=== PATIENT | male | born 1980 | race Caucasian/White ===

== ENCOUNTER 2018-03-31 13:01 | Emergency (ER) | payer MEDICAID ==
[~2018-03-31 13:01] MED LIST: ALBU6.7H INH; CYCL-1 PO; FLUO20CA39 PO; GUAI120L55 PO; IBUP-1984 PO; LAMO25TA62 PO; LORA1TAB PO; TRAZ-218 PO
--- NOTE | 2018-03-31 14:15 | NUR ---
Called pt for triage 3 times with no answer. Chart given to CN for further action.
== END 2018-03-31 14:17 | disposition left against medical advice (07) ==
LOC: ER 13:01
DX: M79.605 Pain in left leg (principal); M79.89 Other specified soft tissue disorders; Z53.21 Procedure and treatment not carried out due to patient leaving prior to being seen by health care provider

== ENCOUNTER 2019-05-26 16:23 | Emergency (ER) | payer MEDICAID ==
[~2019-05-26] VITALS: Ht 190.5 cm; Wt 75.0 kg
[~2019-05-26 16:23] MED LIST changes: -ALBU6.7H INH; +ALBU6.7H9 INH; -TRAZ-218 PO; +TRAZ-251 PO
[2019-05-26 16:46] LABS: CLARITY,URINE SLIGHTLY CLOUDY (Clear); COLOR,URINE YELLOW (Yellow); GLUCOSE, URINE NEGATIVE (Neg); KETONES,URINE NEGATIVE (Neg); LEUKOCYTE ESTERASE ,URINE SMALL (Neg); NITRITES, URINE NEGATIVE (Neg); OCCULT BLOOD,URINE SMALL (Neg); PROTEIN,URINE TRACE mg/dl (Neg)
[2019-05-26 16:48] LABS: UA COLLECTION TYPE VOIDED
[2019-05-26] MEDS ORDERED: mupirocin 2% ointment 22GM TP STA (16:51)
[2019-05-26 16:52] LABS: BACTERIA,URINE FEW /HPF (Neg); MUCUS STRANDS MANY /LPF (Neg); SPERM FEW /HPF (NEGATIVE); SQUAMOUS EPITHELIAL CELL,UR FEW /LPF (FEW); WBC CLUMPS,URINE MODERATE /HPF (NEGATIVE); WBC,URINE 50-100 /HPF (0-4)
[2019-05-26] MEDS ORDERED: CefTRIAXone 250MG IM Kit w/LIDOcaine IM ONE (16:55)
[2019-05-26] MEDS ORDERED: azithromycin 250mg tablet PO ONE (16:55)
[2019-05-26] MEDS ORDERED: CEPH500C5 PO (17:04)
[2019-05-26 17:11] VITALS: BP 123/67
== END 2019-05-26 17:15 | disposition home or self-care (01) ==
LOC: ER 16:24
DX: N48.22 Cellulitis of corpus cavernosum and penis (principal); G89.29 Other chronic pain; Z59.0 Homelessness; Z98.890 Other specified postprocedural states; Z79.899 Other long term (current) drug therapy
CPT/HCPCS: 36415; 81001; 87088; 87491; 87591; 96372; 99283; J0696

== ENCOUNTER 2019-05-29 08:03 | Emergency (ER) | payer MEDICAID ==
[~2019-05-29] VITALS: Ht 190.5 cm; Wt 76.5 kg
[~2019-05-29 08:03] MED LIST changes: +CEPH500C5 PO
[2019-05-29 08:04] VITALS: BP 114/68
[2019-05-29] MEDS ORDERED: DOXYCYCLINE 100MG CAPSULE PO STA (08:14)
[2019-05-29] MEDS ORDERED: CefTRIAXone 1000mg IM Kit (w/lidocaine diluent) IM ONE (08:15)
[2019-05-29] MEDS ORDERED: DOXY100C43 PO (08:17)
== END 2019-05-29 08:42 | disposition home or self-care (01) ==
LOC: ER 08:03
DX: A74.9 Chlamydial infection, unspecified (principal); N45.1 Epididymitis; F32.9 Major depressive disorder, single episode, unspecified; G89.29 Other chronic pain; Z79.899 Other long term (current) drug therapy; Z59.0 Homelessness
CPT/HCPCS: 96372; 99283; J0696

== ENCOUNTER 2019-09-05 21:06 | Emergency (ER) | payer MEDICAID ==
[~2019-09-05] VITALS: Ht 190.5 cm; Wt 68.2 kg
[~2019-09-05 21:06] MED LIST changes: -CEPH500C5 PO
[2019-09-05 21:09] VITALS: BP 119/74
--- NOTE | 2019-09-06 13:40 | NUR ---
PT CALLED AT THE REQUEST OF RENARD TO HAVE HIM RETURN FOR A WALKING BOOT AND CRUTCHES D/T ANKLE FX. MESSAGE LEFT ON PT PHONE
== END 2019-09-05 23:24 | disposition home or self-care (01) ==
LOC: ER 21:07
DX: S93.409A Sprain of unspecified ligament of unspecified ankle, initial encounter (principal); M25.571 Pain in right ankle and joints of right foot; M25.471 Effusion, right ankle; G89.29 Other chronic pain; F32.9 Major depressive disorder, single episode, unspecified; Z98.890 Other specified postprocedural states; Z56.0 Unemployment, unspecified; Z79.899 Other long term (current) drug therapy; W50.2XXA Accidental twist by another person, initial encounter; Y93.I9 Activity, other involving external motion; Y92.89 Other specified places as the place of occurrence of the external cause; Y99.8 Other external cause status
CPT/HCPCS: 73610; 99284

== ENCOUNTER 2019-09-06 15:46 | Emergency (ER) | payer MEDICAID ==
[~2019-09-06] VITALS: Ht 190.5 cm; Wt 72.0 kg
[2019-09-06 15:56] VITALS: BP 109/67
== END 2019-09-06 17:08 | disposition home or self-care (01) ==
LOC: ER 15:46
DX: S82.64XA Nondisplaced fracture of lateral malleolus of right fibula, initial encounter for closed fracture (principal); G89.29 Other chronic pain; F32.9 Major depressive disorder, single episode, unspecified; Z98.890 Other specified postprocedural states; Z59.0 Homelessness; Z79.899 Other long term (current) drug therapy; X58.XXXA Exposure to other specified factors, initial encounter; Y93.89 Activity, other specified; Y92.89 Other specified places as the place of occurrence of the external cause; Y99.8 Other external cause status
CPT/HCPCS: 99283

== ENCOUNTER 2019-09-23 14:29 | Emergency (ER) | payer MEDICAID ==
[~2019-09-23] VITALS: Ht 190.5 cm; Wt 71.1 kg
[2019-09-23 15:01] LABS: BASOPHILS % (AUTO) 0.6 % (0-1); EOSINOPHILS # (AUTO) 0.2 X10'3 (0-0.9); EOSINOPHILS % (AUTO) 3.3 % (0-6); HEMATOCRIT 39.8 % (42.0-52.0); HEMOGLOBIN 13.4 g/dl (14.0-17.9); LYMPHOCYTES % (AUTO) 27.7 % (21-51); MEAN CORPUSCULAR HEMOGLOBIN 30.1 PG (27.0-31.0); MEAN CORPUSCULAR HGB CONC 33.8 g/dL (33.0-36.5); MEAN PLATELET VOLUME 7.4 FL (7.4-10.4); MONOCYTES # (AUTO) 0.6 X10'3 (0-0.9); MONOCYTES % (AUTO) 8.7 % (2-12); NEUTROPHILS # (AUTO) 4.2 X10'3 (1.8-7.7); NEUTROPHILS % (AUTO) 59.7 % (42-75); PLATELET COUNT 252 X10'3 (140-440); RED BLOOD COUNT 4.47 X10'6 (4.70-6.10); WHITE BLOOD COUNT 7.1 X10'3 (4.5-11.0)
[2019-09-23 15:14] LABS: ALANINE AMINOTRANSFERASE 22 U/L (12-78); ALBUMIN 3.5 G/DL (3.4-5.0); ALBUMIN/GLOBULIN RATIO 0.9 (1.1-1.5); ALKALINE PHOSPHATASE 98 IU/L (46-116); ANION GAP 9 (8-16); ASPARTATE AMINO TRANSFERASE 32 U/L (10-37); BILIRUBIN,TOTAL 0.4 MG/DL (0.1-1.0); BLOOD UREA NITROGEN 16 MG/DL (7-18); BUN/CREATININE RATIO 13.2 (5.4-32.0); CALCIUM 9.1 MG/DL (8.5-10.1); CHLORIDE 101 MMOL/L (99-107); CREATININE 1.21 MG/DL (0.60-1.10); GLUCOSE 121 MG/DL (70-104); POTASSIUM 3.4 MMOL/L (3.5-5.1); SODIUM 136 MMOL/L (135-145); TOTAL PROTEIN 7.5 G/DL (6.4-8.2); eGFR 66 ML/MIN
[2019-09-23 15:23] LABS: ETHANOL < 0.010 GM/DL (0.0-0.010)
[2019-09-23] MEDS ORDERED: acetaminophen 325mg tablet PO ONE (16:00)
[2019-09-23] MEDS ORDERED: TETanus/Pertussis (Acell)/Diphther VAC/PF (Tdap-Adult) 0.5ml syringe IMVAC ONE (16:10)
--- NOTE | 2019-09-23 16:45 | NUR ---
Pt moved to ed 26 from ED. Pt walks with a steady gate,
--- NOTE | 2019-09-23 17:08 | NUR ---
Pt's wound evaluated by Dr. Dejesus, pt decided to not get sutures. Pt 's wound was cleaned with sterile water and hydrogen peroxide, using a zerowet. wound dressed with neosporin and covered with a nonadhesive bandage, covered up with coban.
--- NOTE | 2019-09-23 17:26 | NUR ---
pt is sleeping in bed now. no s/s of distress noted.
--- NOTE | 2019-09-23 19:12 | NUR ---
Patient ate 100 percent of his dinner. We are awaiting a urine sample. Patient is cooperative with this specifications writer.
--- NOTE | 2019-09-23 20:16 | NUR ---
Patient was up to bathroom to void. Patient walks with a limp, patient states it is an old ankle injury. Urine sample sent for UA, patient returns back to bed to sleep.
[2019-09-23 20:17] LABS: CLARITY,URINE CLEAR (Clear); COLOR,URINE YELLOW (Yellow); GLUCOSE, URINE NEGATIVE (Neg); KETONES,URINE NEGATIVE (Neg); LEUKOCYTE ESTERASE ,URINE NEGATIVE (Neg); NITRITES, URINE NEGATIVE (Neg); OCCULT BLOOD,URINE MODERATE (Neg); PROTEIN,URINE NEGATIVE (Neg); UA COLLECTION TYPE CLN CATCH MIDSTREAM; UROBILINOGEN,URINE 0.2 E.U/dL (0.2-1.0)
[2019-09-23 20:22] LABS: BACTERIA,URINE NONE SEEN /HPF (Neg); RBC,URINE 0-2 /HPF (0-2); SQUAMOUS EPITHELIAL CELL,UR NONE SEEN /LPF (FEW); WBC,URINE NONE SEEN /HPF (0-4)
[2019-09-23 20:23] LABS: URINE AMPHETAMINE SCREEN POSITIVE (Neg); URINE BARBITUATE SCREEN NEGATIVE (Neg); URINE BENZODIAZEPINES SCREEN NEGATIVE (Neg); URINE CANNABINOID SCREEN POSITIVE (Neg); URINE COCAINE SCREEN NEGATIVE (Neg); URINE METHADONE SCREEN NEGATIVE (Neg); URINE OPIATE SCREEN NEGATIVE (Neg); URINE PHENCYCLIDINE SCREEN NEGATIVE (Neg)
--- NOTE | 2019-09-23 20:36 | NUR ---
Pt sleeping on his left side resp even and unlabored . Pt in the direct line of sight of nursing staff .
--- NOTE | 2019-09-23 21:29 | NUR ---
Patient sleeping in supine position. No distress. Good color.
--- NOTE | 2019-09-23 22:30 | NUR ---
Patient is sleeping quietly on his left side in bed.
--- NOTE | 2019-09-23 23:53 | NUR ---
Patient is sleeping quietly, low fowlers position. In view from nursing station.
--- NOTE | 2019-09-24 01:05 | NUR ---
Breaking primary RN, pt. resting quietly on back, respirations WNL even and unlabored, no signs of distress.
--- NOTE | 2019-09-24 02:18 | NUR ---
Patient is sleeping with his knees flexed. Patient in no distress. In view from nursing station.
--- NOTE | 2019-09-24 03:11 | NUR ---
Patient sleeping quietly, supine position. Good color, no distress.
--- NOTE | 2019-09-24 04:06 | NUR ---
Patient sleeping quietly. Patient self repositions in bed. Good color, no distress.
--- NOTE | 2019-09-24 05:15 | NUR ---
Patient sleeping, supine position, no distress.
--- NOTE | 2019-09-24 06:30 | NUR ---
pt is sleeping
--- NOTE | 2019-09-24 07:30 | NUR ---
pt is resting
--- NOTE | 2019-09-24 08:30 | NUR ---
no concerns at this time
--- NOTE | 2019-09-24 09:30 | NUR ---
pt is sleeping no concerns at this time
--- NOTE | 2019-09-24 10:30 | NUR ---
pt is sleeping no concerns at this time
--- NOTE | 2019-09-24 11:30 | NUR ---
pt is sleeping no concerns at this time
--- NOTE | 2019-09-24 12:21 | NUR ---
pt is sleeping no concerns at this time
--- NOTE | 2019-09-24 13:00 | NUR ---
PT IS SLEEPING NO CONCERNS AT THIS TIME
--- NOTE | 2019-09-24 14:00 | NUR ---
PT IS SLEEPING NO CONCERNS AT THIS TIME
--- NOTE | 2019-09-24 15:00 | NUR ---
PT IS SLEEPING NO CONCERNS AT THIS TIME
--- NOTE | 2019-09-24 16:00 | NUR ---
PT IS SLEEPING NO CONCERNS AT THIS TIME
--- NOTE | 2019-09-24 17:00 | NUR ---
ACCEPTING INFOR FOR RESPAD AT [id number] BY THEODORE
--- NOTE | 2019-09-24 17:00 | NUR ---
PT IS SLEEPING NO CONCERNS AT THIS TIME
--- NOTE | 2019-09-24 18:05 | NUR ---
PT IS SLEEPING NO CONCERNS AT THIS TIME
--- NOTE | 2019-09-24 19:29 | NUR ---
One to one with the patient and made patient aware of plan [facility] care [facility]. He stated that he has had significant stressores with being homeless and fighting with his . Stated that he is feeling suicidal. He admits to methamphetamine use. He is friendly and cooperative with staff.
[2019-09-24 19:36] VITALS: BP 115/67
== END 2019-09-24 19:39 ==
LOC: ER 14:30
DX: S51.811A Laceration without foreign body of right forearm, initial encounter (principal); R45.851 Suicidal ideations; G89.29 Other chronic pain; F32.9 Major depressive disorder, single episode, unspecified; F17.210 Nicotine dependence, cigarettes, uncomplicated; F12.90 Cannabis use, unspecified, uncomplicated; Z98.890 Other specified postprocedural states; Z59.0 Homelessness; X78.1XXA Intentional self-harm by knife, initial encounter; Y93.89 Activity, other specified; Y92.89 Other specified places as the place of occurrence of the external cause; Y99.8 Other external cause status
CPT/HCPCS: 36415; 80053; 80305; 80320; 81001; 84443; 85025; 86592; 90471; 90715; 99285

== ENCOUNTER 2020-03-21 17:51 | Emergency (ER) | payer MEDICAID | END 2020-03-21 19:36 | disposition left against medical advice (07) | LOC: ER 17:58 | DX: M25.569 Pain in unspecified knee (principal); Z53.21 Procedure and treatment not carried out due to patient leaving prior to being seen by health care provider ==

== ENCOUNTER 2020-04-05 19:16 | Emergency (ER) | payer MEDICAID ==
[~2020-04-05] VITALS: Ht 190.5 cm; Wt 72.7 kg
[2020-04-05 19:18] VITALS: BP 124/74
== END 2020-04-05 19:59 | disposition home or self-care (01) ==
LOC: ER 19:17
DX: M25.562 Pain in left knee (principal); G89.29 Other chronic pain; F17.200 Nicotine dependence, unspecified, uncomplicated; Z72.89 Other problems related to lifestyle; F12.90 Cannabis use, unspecified, uncomplicated; F15.90 Other stimulant use, unspecified, uncomplicated; Z59.0 Homelessness
CPT/HCPCS: 99284

== ENCOUNTER 2020-04-21 18:21 | Emergency (ER) | payer MEDICAID ==
[~2020-04-21] VITALS: Ht 190.5 cm; Wt 68.2 kg
[2020-04-21 18:25] VITALS: BP 112/70
[2020-04-21] MEDS ORDERED: ketorolac tromethamine 15mg/ml inj. IM ONE (19:40)
[2020-04-21] MEDS ORDERED: IBUP-1984 PO (19:44)
== END 2020-04-21 20:33 | disposition home or self-care (01) ==
LOC: ER 18:22
DX: M25.562 Pain in left knee (principal); G89.29 Other chronic pain; F12.90 Cannabis use, unspecified, uncomplicated; F15.90 Other stimulant use, unspecified, uncomplicated; Z59.0 Homelessness; Z72.89 Other problems related to lifestyle; Z79.899 Other long term (current) drug therapy
CPT/HCPCS: 29105; 73564; 96372; 99283; J1885

== ENCOUNTER 2020-06-02 16:28 | Emergency (ER) | payer MEDICAID ==
[~2020-06-02] VITALS: Ht 190.5 cm; Wt 68.3 kg
[2020-06-02 18:22] LABS: BASOPHILS % (AUTO) 0.3 % (0-1); EOSINOPHILS # (AUTO) 0.2 X10'3 (0-0.9); HEMATOCRIT 41.8 % (42.0-52.0); HEMOGLOBIN 13.9 g/dl (14.0-17.9); LYMPHOCYTES # (AUTO) 1.7 X10'3 (1.1-4.8); LYMPHOCYTES % (AUTO) 9.6 % (21-51); MEAN CORPUSCULAR HEMOGLOBIN 30.2 PG (27.0-31.0); MEAN CORPUSCULAR HGB CONC 33.3 g/dL (33.0-36.5); MEAN CORPUSCULAR VOLUME 90.7 FL (78-98); MEAN PLATELET VOLUME 7.4 FL (7.4-10.4); MONOCYTES # (AUTO) 1.2 X10'3 (0-0.9); MONOCYTES % (AUTO) 6.7 % (2-12); NEUTROPHILS # (AUTO) 14.4 X10'3 (1.8-7.7); NEUTROPHILS % (AUTO) 82.4 % (42-75); PLATELET COUNT 292 X10'3 (140-440); RED BLOOD COUNT 4.61 X10'6 (4.70-6.10); RED CELL DISTRIBUTION WIDTH 13.7 % (11.5-14.5); WHITE BLOOD COUNT 17.4 X10'3 (4.5-11.0)
[2020-06-02] MEDS ORDERED: TETanus/Pertussis (Acell)/Diphther VAC/PF (Tdap-Adult) 0.5ml syringe IMVAC ONE (18:25)
[2020-06-02] MEDS ORDERED: CefTRIAXone 1000mg IM Kit (w/lidocaine diluent) IM ONE (18:25)
[2020-06-02 18:37] LABS: ALANINE AMINOTRANSFERASE 24 U/L (12-78); ALBUMIN 3.6 G/DL (3.4-5.0); ALBUMIN/GLOBULIN RATIO 0.8 (1.1-1.5); ALKALINE PHOSPHATASE 112 IU/L (46-116); ANION GAP 11 (8-16); ASPARTATE AMINO TRANSFERASE 19 U/L (10-37); BILIRUBIN,TOTAL 0.3 MG/DL (0.1-1.0); BLOOD UREA NITROGEN 19 MG/DL (7-18); BUN/CREATININE RATIO 21.8 (5.4-32.0); CHLORIDE 99 MMOL/L (99-107); CREATININE 0.87 MG/DL (0.60-1.10); GLUCOSE 117 MG/DL (70-104); POTASSIUM 4.2 MMOL/L (3.5-5.1); SODIUM 137 MMOL/L (135-145); TOTAL PROTEIN 8.1 G/DL (6.4-8.2); eGFR > 90 ML/MIN
[2020-06-02] MEDS ORDERED: CEPH250T PO (18:45)
[2020-06-02] MEDS ORDERED: HYDR-3965 PO (18:45)
[2020-06-02] MEDS ORDERED: DOXY100C76 PO (18:45)
[2020-06-02 18:47] LABS: CALCIUM 9.7 MG/DL (8.5-10.1)
[2020-06-02 18:56] VITALS: BP 132/93
[2020-06-02] MEDS ORDERED: LIDOcaine 1% 30ml preserv. free vial ONE (22:00)
== END 2020-06-02 18:57 | disposition home or self-care (01) ==
LOC: ER 16:28
DX: L03.011 Cellulitis of right finger (principal); G89.29 Other chronic pain; F32.9 Major depressive disorder, single episode, unspecified; F12.90 Cannabis use, unspecified, uncomplicated; F15.90 Other stimulant use, unspecified, uncomplicated; Z98.890 Other specified postprocedural states; Z72.89 Other problems related to lifestyle; Z59.0 Homelessness; Z79.2 Long term (current) use of antibiotics
CPT/HCPCS: 26010; 36415; 73130; 80053; 85025; 85651; 90471; 90715; 96372; 99284; J0696; J2001

== ENCOUNTER 2020-06-13 17:22 | Emergency (ER) | payer MEDICAID ==
[~2020-06-13] VITALS: Ht 190.5 cm; Wt 72.7 kg
[~2020-06-13 17:22] MED LIST changes: -ALBU6.7H9 INH; +CEPH250T PO; -CYCL-1 PO; +DOXY100C76 PO; -FLUO20CA39 PO; -GUAI120L55 PO; +HYDR-3965 PO; -IBUP-1984 PO; -LAMO25TA62 PO; -LORA1TAB PO; -TRAZ-251 PO
[2020-06-13 17:27] VITALS: BP 112/72
[2020-06-13 21:10] LABS: BASOPHILS # (AUTO) 0.1 X10'3 (0-0.2); BASOPHILS % (AUTO) 0.9 % (0-1); EOSINOPHILS # (AUTO) 0.4 X10'3 (0-0.9); EOSINOPHILS % (AUTO) 3.8 % (0-6); HEMATOCRIT 37.4 % (42.0-52.0); HEMOGLOBIN 12.8 g/dl (14.0-17.9); LYMPHOCYTES # (AUTO) 3.1 X10'3 (1.1-4.8); LYMPHOCYTES % (AUTO) 33.5 % (21-51); MEAN CORPUSCULAR HEMOGLOBIN 30.5 PG (27.0-31.0); MEAN CORPUSCULAR HGB CONC 34.2 g/dL (33.0-36.5); MEAN CORPUSCULAR VOLUME 89.1 FL (78-98); MEAN PLATELET VOLUME 7.3 FL (7.4-10.4); MONOCYTES # (AUTO) 0.5 X10'3 (0-0.9); MONOCYTES % (AUTO) 5.6 % (2-12); NEUTROPHILS # (AUTO) 5.2 X10'3 (1.8-7.7); NEUTROPHILS % (AUTO) 56.2 % (42-75); PLATELET COUNT 306 X10'3 (140-440); RED CELL DISTRIBUTION WIDTH 12.8 % (11.5-14.5); WHITE BLOOD COUNT 9.2 X10'3 (4.5-11.0)
[2020-06-13 21:16] LABS: ALANINE AMINOTRANSFERASE 25 U/L (12-78); ALBUMIN 3.5 G/DL (3.4-5.0); ALBUMIN/GLOBULIN RATIO 0.9 (1.1-1.5); ALKALINE PHOSPHATASE 103 IU/L (46-116); ANION GAP 10 (8-16); ASPARTATE AMINO TRANSFERASE 26 U/L (10-37); BLOOD UREA NITROGEN 23 MG/DL (7-18); BUN/CREATININE RATIO 22.8 (5.4-32.0); C-REACTIVE PROTEIN 0.15 MG/DL (0.0-0.5); CHLORIDE 101 MMOL/L (99-107); CREATININE 1.01 MG/DL (0.60-1.10); GLUCOSE 93 MG/DL (70-104); POTASSIUM 3.9 MMOL/L (3.5-5.1); SODIUM 138 MMOL/L (135-145); TOTAL CARBON DIOXIDE 26.6 MMOL/L (24-32); TOTAL PROTEIN 7.3 G/DL (6.4-8.2); eGFR 82 ML/MIN
[2020-06-13 21:23] LABS: BILIRUBIN,TOTAL 0.1 MG/DL (0.1-1.0)
[2020-06-13] MEDS ORDERED: CEPH250T PO (21:38)
[2020-06-13] MEDS ORDERED: DOXY-1 PO (21:38)
== END 2020-06-13 22:20 | disposition home or self-care (01) ==
LOC: ER 17:23
DX: S61.001A Unspecified open wound of right thumb without damage to nail, initial encounter (principal); G89.29 Other chronic pain; F32.9 Major depressive disorder, single episode, unspecified; F15.90 Other stimulant use, unspecified, uncomplicated; F12.90 Cannabis use, unspecified, uncomplicated; Z72.89 Other problems related to lifestyle; Z98.890 Other specified postprocedural states; Z59.0 Homelessness; X58.XXXA Exposure to other specified factors, initial encounter; Y93.89 Activity, other specified; Y92.89 Other specified places as the place of occurrence of the external cause; Y99.8 Other external cause status
CPT/HCPCS: 36415; 73130; 80053; 85025; 86140; 99284

== ENCOUNTER 2020-08-23 00:57 | Emergency (ER) | payer MEDICAID ==
[~2020-08-23] VITALS: Ht 190.5 cm; Wt 68.2 kg
[2020-08-23 01:02] VITALS: BP 118/77
[2020-08-23] MEDS ORDERED: ibuprofen tablet 400 MG TABLET PO ONE (01:10)
[2020-08-23] MEDS ORDERED: HYDROcodone/acetaminophen 10/325mg tab PO ONE (01:10)
[2020-08-23] MEDS ORDERED: HYDR-3965 PO (01:29)
--- NOTE | 2020-08-23 04:47 | NUR ---
Attempted to Patient about his X-ray resulting in a small pnuemothorax.The number provided in patient demographics had a full mailbox and patient did not answer.
== END 2020-08-23 02:23 | disposition home or self-care (01) ==
LOC: ER 00:58
DX: S52.502A Unspecified fracture of the lower end of left radius, initial encounter for closed fracture (principal); S20.211A Contusion of right front wall of thorax, initial encounter; M25.532 Pain in left wrist; R07.89 Other chest pain; G89.29 Other chronic pain; F32.9 Major depressive disorder, single episode, unspecified; F12.90 Cannabis use, unspecified, uncomplicated; F15.90 Other stimulant use, unspecified, uncomplicated; Z98.890 Other specified postprocedural states; Z72.89 Other problems related to lifestyle; Z59.0 Homelessness; Z79.899 Other long term (current) drug therapy; W19.XXXA Unspecified fall, initial encounter; Y93.89 Activity, other specified; Y92.89 Other specified places as the place of occurrence of the external cause; Y99.8 Other external cause status
CPT/HCPCS: 29125; 71045; 71100; 73090; 73110; 99284

== ENCOUNTER 2020-09-04 22:01 | Emergency (ER) | payer MEDICAID ==
[~2020-09-04] VITALS: Ht 190.5 cm; Wt 68.2 kg
[~2020-09-04 22:01] MED LIST changes: -CEPH250T PO; -DOXY100C76 PO
[2020-09-05 00:22] VITALS: BP 109/65
[2020-09-05] MEDS ORDERED: acetaminophen 325mg tablet PO ONE (02:10)
[2020-09-05] MEDS ORDERED: HYDR-3965 PO (03:53)
[2020-09-05] MEDS ORDERED: NAPR-56 PO (03:53)
[2020-09-05] MEDS ORDERED: naproxen 500mg tablet PO ONE (03:55)
[2020-09-05] MEDS ORDERED: HYDROcodone/acetaminophen 5mg/325mg tablet PO ONE (03:55)
== END 2020-09-05 04:45 | disposition home or self-care (01) ==
LOC: ER 22:01
DX: B34.9 Viral infection, unspecified (principal); Z20.822 Contact with and (suspected) exposure to COVID-19; M79.621 Pain in right upper arm; G89.29 Other chronic pain; F12.90 Cannabis use, unspecified, uncomplicated; F15.90 Other stimulant use, unspecified, uncomplicated; Z79.899 Other long term (current) drug therapy; Z87.81 Personal history of (healed) traumatic fracture; Z59.0 Homelessness; Z98.890 Other specified postprocedural states
CPT/HCPCS: 71045; 87635; 93005; 99285; C9803; 99284

== ENCOUNTER 2021-09-29 11:06 | Emergency (ER) | payer MEDICAID ==
[~2021-09-29] VITALS: Ht 190.5 cm; Wt 68.2 kg
[2021-09-29 11:11] VITALS: BP 114/58
[2021-09-29] MEDS ORDERED: CefTRIAXone 1000mg IM Kit (w/lidocaine diluent) IM STA (11:38)
[2021-09-29] MEDS ORDERED: azithromycin 250mg tablet PO ONE (11:40)
[2021-09-29] MEDS ORDERED: PENICILLIN G BENZATHINE 2,400,000 UNIT/4 ML SYRINGE IM ONE (11:40)
[2021-09-29 12:09] LABS: CLARITY,URINE CLOUDY (Clear); COLOR,URINE YELLOW (Yellow); GLUCOSE, URINE NEGATIVE (Neg); KETONES,URINE NEGATIVE (Neg); LEUKOCYTE ESTERASE ,URINE NEGATIVE (Neg); NITRITES, URINE NEGATIVE (Neg); OCCULT BLOOD,URINE NEGATIVE (Neg); PROTEIN,URINE NEGATIVE (Neg); UROBILINOGEN,URINE 0.2 E.U/dL (0.2-1.0)
[2021-09-29 12:27] LABS: UA COLLECTION TYPE NON-SPECIFIED
[2021-09-29 12:33] LABS: WBC,URINE 0-4 /HPF (0-4)
[2021-09-29 12:34] LABS: AMORPHOUS PHOSPHATES 4+; BACTERIA,URINE NONE SEEN /HPF (Neg); RBC,URINE NONE SEEN /HPF (0-2); SQUAMOUS EPITHELIAL CELL,UR FEW /LPF (FEW)
[2021-09-29 12:46] LABS: HIV ANTIBODY 1&2 RAPID NON-REACTIVE (Neg)
[2021-09-30 13:22] LABS: HEPATITIS C ANTIBODY SEE COMMENTS
== END 2021-09-29 12:28 | disposition home or self-care (01) ==
LOC: ER 11:07
DX: Z20.2 Contact with and (suspected) exposure to infections with a predominantly sexual mode of transmission (principal); F15.10 Other stimulant abuse, uncomplicated; F12.20 Cannabis dependence, uncomplicated; G89.29 Other chronic pain; M54.50 Low back pain, unspecified; Z59.00 Homelessness unspecified
CPT/HCPCS: 36415; 81001; 86592; 86703; 86803; 87491; 87591; 96372; 99284; J0561; J0696

== ENCOUNTER 2021-10-21 10:21 | Emergency (ER) | payer MEDICAID ==
[~2021-10-21] VITALS: Ht 190.5 cm; Wt 68.2 kg
[2021-10-21 10:56] LABS: CLARITY,URINE SLIGHTLY CLOUDY (Clear); GLUCOSE, URINE NEGATIVE (Neg); KETONES,URINE NEGATIVE (Neg); LEUKOCYTE ESTERASE ,URINE NEGATIVE (Neg); NITRITES, URINE NEGATIVE (Neg); OCCULT BLOOD,URINE NEGATIVE (Neg); PH,URINE 8.5 (4.8-8.0); PROTEIN,URINE NEGATIVE (Neg); UA COLLECTION TYPE CLN CATCH MIDSTREAM; UROBILINOGEN,URINE 0.2 E.U/dL (0.2-1.0)
[2021-10-21 10:56] LABS: BASOPHILS # (AUTO) 0.1 X10'3 (0-0.2); BASOPHILS % (AUTO) 1.3 % (0-1); EOSINOPHILS # (AUTO) 0.3 X10'3 (0-0.9); EOSINOPHILS % (AUTO) 3.5 % (0-6); HEMATOCRIT 40.6 % (42.0-52.0); HEMOGLOBIN 13.6 g/dl (14.0-17.9); LYMPHOCYTES # (AUTO) 2.1 X10'3 (1.1-4.8); LYMPHOCYTES % (AUTO) 22.6 % (21-51); MEAN CORPUSCULAR HEMOGLOBIN 30.2 PG (27.0-31.0); MEAN CORPUSCULAR HGB CONC 33.5 g/dL (33.0-36.5); MEAN PLATELET VOLUME 7.5 FL (7.4-10.4); MONOCYTES # (AUTO) 0.7 X10'3 (0-0.9); MONOCYTES % (AUTO) 7.5 % (2-12); NEUTROPHILS # (AUTO) 6.1 X10'3 (1.8-7.7); NEUTROPHILS % (AUTO) 65.1 % (42-75); PLATELET COUNT 236 X10'3 (140-440); RED BLOOD COUNT 4.51 X10'6 (4.70-6.10); RED CELL DISTRIBUTION WIDTH 14.3 % (11.5-14.5); WHITE BLOOD COUNT 9.4 X10'3 (4.5-11.0)
[2021-10-21 10:57] LABS: COLOR,URINE STRAW (Yellow)
[2021-10-21] MEDS ORDERED: PENICILLIN G BENZATHINE 2,400,000 UNIT/4 ML SYRINGE IM STA (11:01)
[2021-10-21 11:04] LABS: AMORPHOUS PHOSPHATES 4+; BACTERIA,URINE NONE SEEN /HPF (Neg); RBC,URINE NONE SEEN /HPF (0-2); SQUAMOUS EPITHELIAL CELL,UR FEW /LPF (FEW); WBC,URINE NONE SEEN /HPF (0-4)
[2021-10-21] MEDS ORDERED: IBUP-1986 PO (11:13)
[2021-10-21] MEDS ORDERED: CYCL-1 PO (11:13)
[2021-10-21 11:15] LABS: ALANINE AMINOTRANSFERASE 29 U/L (12-78); ALBUMIN 3.4 G/DL (3.4-5.0); ALBUMIN/GLOBULIN RATIO 0.9 (1.1-1.5); ALKALINE PHOSPHATASE 104 IU/L (46-116); ANION GAP 9 (8-16); ASPARTATE AMINO TRANSFERASE 27 U/L (10-37); BILIRUBIN,TOTAL 0.2 MG/DL (0.1-1.0); BLOOD UREA NITROGEN 16 MG/DL (7-18); BUN/CREATININE RATIO 21.3 (5.4-32.0); CHLORIDE 106 MMOL/L (99-107); CREATININE 0.75 MG/DL (0.60-1.10); GLUCOSE 95 MG/DL (70-104); LIPASE 210 U/L (73-393); POTASSIUM 4.2 MMOL/L (3.5-5.1); SODIUM 139 MMOL/L (135-145); TOTAL CARBON DIOXIDE 24.4 MMOL/L (24-32); TOTAL PROTEIN 7.4 G/DL (6.4-8.2); eGFR > 90 ML/MIN
[2021-10-21 11:26] LABS: CALCIUM 8.8 MG/DL (8.5-10.1)
[2021-10-21 11:31] VITALS: BP 116/79
== END 2021-10-21 11:33 | disposition home or self-care (01) ==
LOC: ER 10:22
DX: A53.9 Syphilis, unspecified (principal); M54.50 Low back pain, unspecified; G89.29 Other chronic pain; F12.90 Cannabis use, unspecified, uncomplicated; F15.20 Other stimulant dependence, uncomplicated; Z59.00 Homelessness unspecified
CPT/HCPCS: 36415; 80053; 81001; 83690; 85025; 86592; 96372; 99283; J0561

== ENCOUNTER 2021-12-02 13:11 | Outpatient (CLI) | payer MEDICAID ==
[~2021-12-02 13:11] MED LIST changes: +CYCL-1 PO; -HYDR-3965 PO; +IBUP-1986 PO
== END 2021-12-02 23:59 | disposition home or self-care (01) ==
LOC: CARD DIAG 13:11
PROVIDERS: ATTEND Family Medicine
DX: I37.1 Nonrheumatic pulmonary valve insufficiency (principal); R60.0 Localized edema
CPT/HCPCS: 93306

== ENCOUNTER 2021-12-28 14:09 | Emergency (ER) | payer MEDICAID ==
[~2021-12-28] VITALS: Ht 190.5 cm; Wt 81.8 kg
[2021-12-28 14:13] VITALS: BP 121/70
[2021-12-28 14:33] LABS: BASOPHILS # (AUTO) 0.1 X10'3 (0-0.2); BASOPHILS % (AUTO) 0.5 % (0-1); EOSINOPHILS # (AUTO) 0.4 X10'3 (0-0.9); EOSINOPHILS % (AUTO) 3.1 % (0-6); HEMATOCRIT 43.4 % (42.0-52.0); HEMOGLOBIN 14.5 g/dl (14.0-17.9); LYMPHOCYTES # (AUTO) 2.6 X10'3 (1.1-4.8); LYMPHOCYTES % (AUTO) 20.9 % (21-51); MEAN CORPUSCULAR HEMOGLOBIN 30.1 PG (27.0-31.0); MEAN CORPUSCULAR HGB CONC 33.5 g/dL (33.0-36.5); MEAN PLATELET VOLUME 7.5 FL (7.4-10.4); MONOCYTES # (AUTO) 0.9 X10'3 (0-0.9); MONOCYTES % (AUTO) 7.3 % (2-12); NEUTROPHILS # (AUTO) 8.5 X10'3 (1.8-7.7); NEUTROPHILS % (AUTO) 68.2 % (42-75); PLATELET COUNT 253 X10'3 (140-440); RED BLOOD COUNT 4.82 X10'6 (4.70-6.10); RED CELL DISTRIBUTION WIDTH 13.2 % (11.5-14.5); WHITE BLOOD COUNT 12.5 X10'3 (4.5-11.0)
[2021-12-28 14:37] LABS: CLARITY,URINE CLEAR (Clear); COLOR,URINE YELLOW (Yellow); GLUCOSE, URINE NEGATIVE (Neg); KETONES,URINE NEGATIVE (Neg); LEUKOCYTE ESTERASE ,URINE NEGATIVE (Neg); NITRITES, URINE NEGATIVE (Neg); OCCULT BLOOD,URINE NEGATIVE (Neg); PROTEIN,URINE NEGATIVE (Neg); UROBILINOGEN,URINE 0.2 E.U/dL (0.2-1.0)
[2021-12-28 14:40] LABS: UA COLLECTION TYPE CLN CATCH MIDSTREAM
[2021-12-28 15:05] LABS: ALANINE AMINOTRANSFERASE 23 U/L (12-78); ALKALINE PHOSPHATASE 108 IU/L (46-116); ANION GAP 9 (8-16); ASPARTATE AMINO TRANSFERASE 24 U/L (10-37); BILIRUBIN,TOTAL 0.4 MG/DL (0.1-1.0); BLOOD UREA NITROGEN 14 MG/DL (7-18); CALCIUM 9.4 MG/DL (8.5-10.1); CHLORIDE 102 MMOL/L (99-107); GLUCOSE 98 MG/DL (70-104); POTASSIUM 3.9 MMOL/L (3.5-5.1); SODIUM 138 MMOL/L (135-145); TOTAL CARBON DIOXIDE 26.6 MMOL/L (24-32); TOTAL PROTEIN 8.1 G/DL (6.4-8.2); eGFR 82 ML/MIN
[2021-12-28] MEDS ORDERED: IBUP-1986 PO (15:37)
[2021-12-28] MEDS ORDERED: ketorolac trometh inj. 60 MG/2 ML VIAL IM ONE (15:40)
== END 2021-12-28 15:48 | disposition home or self-care (01) ==
LOC: ER 14:10
DX: M62.830 Muscle spasm of back (principal); G89.29 Other chronic pain; F12.10 Cannabis abuse, uncomplicated; F15.10 Other stimulant abuse, uncomplicated; Z79.899 Other long term (current) drug therapy
CPT/HCPCS: 36415; 71046; 80053; 81003; 85025; 96372; 99284; J1885

== ENCOUNTER 2022-03-19 18:18 | Emergency (ER) | payer MEDICAID | END 2022-03-19 18:44 | disposition left against medical advice (07) | LOC: ER 18:19 | DX: M79.18 Myalgia, other site (principal); Z53.21 Procedure and treatment not carried out due to patient leaving prior to being seen by health care provider ==

== ENCOUNTER 2022-10-17 08:27 | Emergency (ER) | payer OTHER, MEDICAID ==
[~2022-10-17] VITALS: Ht 190.5 cm; Wt 84.4 kg
[2022-10-17 08:30] VITALS: BP 122/84; PULSE 60; RESP 16; TEMP 97.6; O2SAT 98
[2022-10-17] MEDS ORDERED: IBUP-1984 PO (14:30)
[2022-10-17] MEDS ORDERED: CYCL-1 PO (14:30)
== END 2022-10-17 15:17 | disposition home or self-care (01) ==
LOC: ER 08:28
DX: M54.2 Cervicalgia (principal); M54.9 Dorsalgia, unspecified; F12.10 Cannabis abuse, uncomplicated; F15.10 Other stimulant abuse, uncomplicated; Z87.81 Personal history of (healed) traumatic fracture; Z79.899 Other long term (current) drug therapy; V87.7XXA Person injured in collision between other specified motor vehicles (traffic), initial encounter; Y92.89 Other specified places as the place of occurrence of the external cause; Y99.8 Other external cause status
CPT/HCPCS: 72125; 73030; 99284

== ENCOUNTER 2022-12-12 08:04 | Emergency (ER) | payer MEDICAID ==
[~2022-12-12] VITALS: Ht 190.5 cm; Wt 85.0 kg
[2022-12-12 08:25] VITALS: BP 130/62; PULSE 62; RESP 16; O2SAT 98
[2022-12-12] MEDS ORDERED: LIDOcaine 1% W/epiNEPHrine 1:100,000 20ml vial IJ ONE (13:15)
[2022-12-12] MEDS ORDERED: LIDOcaine 1% (10mg/ml)w/preservative inj. 20ml MDV SQ ONE (13:45)
[2022-12-12] MEDS ORDERED: LIDOcaine 1% W/epiNEPHrine 1:100,000 20ml vial SQ ONE (13:45)
[2022-12-12] MEDS ORDERED: SULF1TAB45 PO (14:17)
[2022-12-12 14:37] VITALS: TEMP 98.2
== END 2022-12-12 14:42 | disposition home or self-care (01) ==
LOC: ER 08:04
DX: L02.411 Cutaneous abscess of right axilla (principal); G89.29 Other chronic pain; M54.9 Dorsalgia, unspecified; F12.10 Cannabis abuse, uncomplicated; F15.10 Other stimulant abuse, uncomplicated; Z79.899 Other long term (current) drug therapy
CPT/HCPCS: 10061; 99284; A6266; J3490; A6449

== ENCOUNTER 2023-04-01 15:41 | Emergency (ER) | payer MEDICAID ==
[~2023-04-01] VITALS: Ht 190.5 cm; Wt 69.6 kg
[2023-04-01 15:59] VITALS: TEMP 97.1
[2023-04-01] MEDS ORDERED: loperamide 2mg capsule PO ONE (16:05)
[2023-04-01] MEDS ORDERED: normal saline 1000ml 1,000 ML IV ONE (16:05)
[2023-04-01] MEDS ORDERED: dicyclomine 10 MG capsule PO ONE (16:55)
[2023-04-01] MEDS ORDERED: ondansetron 4mg rapidly disintigrating tab PO ONE (16:55)
[2023-04-01 17:19] VITALS: BP 111/69; PULSE 88; O2SAT 100
[2023-04-01] MEDS ORDERED: BISM262T15 PO (17:41)
[2023-04-01] MEDS ORDERED: LOPE1LIQ54 PO (17:41)
[2023-04-01] MEDS ORDERED: DICY20TA17 PO (17:41)
[2023-04-01] MEDS ORDERED: ONDA4TAB12 PO (17:41)
[2023-04-01 18:04] VITALS: RESP 16
== END 2023-04-01 18:54 | disposition home or self-care (01) ==
LOC: ER 15:42
DX: R19.7 Diarrhea, unspecified (principal); R11.0 Nausea; R10.9 Unspecified abdominal pain; F12.90 Cannabis use, unspecified, uncomplicated; F15.90 Other stimulant use, unspecified, uncomplicated; Z79.899 Other long term (current) drug therapy; Z79.1 Long term (current) use of non-steroidal anti-inflammatories (NSAID)
CPT/HCPCS: 96360; 96361; 99284; J7030

== ENCOUNTER 2023-04-07 19:23 | Emergency (ER) | payer MEDICAID ==
[~2023-04-07] VITALS: Ht 190.5 cm; Wt 63.6 kg
[~2023-04-07 19:23] MED LIST changes: +BISM262T15 PO; +DICY20TA17 PO; +LOPE1LIQ54 PO; +ONDA4TAB12 PO
[2023-04-07 19:51] VITALS: BP 154/98; PULSE 85; TEMP 98.1; O2SAT 97
[2023-04-07] MEDS ORDERED: loperamide 2mg capsule PO ONE (19:55)
[2023-04-07] MEDS ORDERED: ondansetron 4mg rapidly disintigrating tab PO ONE (19:55)
[2023-04-07 20:30] VITALS: RESP 16
== END 2023-04-07 20:31 | disposition home or self-care (01) ==
LOC: ER 19:24
DX: R11.2 Nausea with vomiting, unspecified (principal); R19.7 Diarrhea, unspecified; R10.9 Unspecified abdominal pain; G89.29 Other chronic pain; F32.A Depression, unspecified; F15.90 Other stimulant use, unspecified, uncomplicated; Z59.00 Homelessness unspecified; Z87.81 Personal history of (healed) traumatic fracture; Z79.899 Other long term (current) drug therapy
CPT/HCPCS: 99283

== ENCOUNTER 2023-04-25 21:07 | Emergency (ER) | payer MEDICAID ==
[~2023-04-25] VITALS: Ht 190.5 cm; Wt 63.6 kg
[2023-04-25 21:09] VITALS: BP 125/78; PULSE 91; RESP 16; TEMP 98; O2SAT 99
== END 2023-04-25 21:59 | disposition home or self-care (01) ==
LOC: ER 21:08
DX: F12.10 Cannabis abuse, uncomplicated (principal); F15.10 Other stimulant abuse, uncomplicated; G89.29 Other chronic pain; F32.A Depression, unspecified; Z59.00 Homelessness unspecified; Z79.899 Other long term (current) drug therapy
CPT/HCPCS: 99281

== ENCOUNTER 2023-10-20 21:06 | Emergency (ER) | payer MEDICAID ==
[~2023-10-20] VITALS: Ht 190.5 cm; Wt 84.8 kg
[~2023-10-20 21:06] MED LIST changes: +ONDA-243 PO; -ONDA4TAB12 PO
[2023-10-20 23:05] VITALS: BP 125/78; PULSE 88; RESP 15; TEMP 98.5; O2SAT 98
== END 2023-10-20 23:08 | disposition home or self-care (01) ==
LOC: ER 21:06
DX: S93.402A Sprain of unspecified ligament of left ankle, initial encounter (principal); S96.912A Strain of unspecified muscle and tendon at ankle and foot level, left foot, initial encounter; G89.29 Other chronic pain; M54.9 Dorsalgia, unspecified; F32.A Depression, unspecified; F12.90 Cannabis use, unspecified, uncomplicated; F15.90 Other stimulant use, unspecified, uncomplicated; Z79.899 Other long term (current) drug therapy; Z79.1 Long term (current) use of non-steroidal anti-inflammatories (NSAID); Z79.2 Long term (current) use of antibiotics; X50.1XXA Overexertion from prolonged static or awkward postures, initial encounter; Y93.89 Activity, other specified; Y92.89 Other specified places as the place of occurrence of the external cause; Y99.8 Other external cause status
CPT/HCPCS: 73610; 99283; A6449

== ENCOUNTER 2024-04-28 12:56 | Emergency (ER) | payer MEDICAID ==
[~2024-04-28] VITALS: Ht 190.5 cm; Wt 73.8 kg
[2024-04-28 13:29] VITALS: BP 117/79; PULSE 75; RESP 16; O2SAT 99
[2024-04-28] MEDS ORDERED: NICO-687 TOP (13:46)
[2024-04-28 13:56] VITALS: TEMP 98.5
== END 2024-04-28 13:57 | disposition home or self-care (01) ==
LOC: ER 12:57
DX: Z00.00 Encounter for general adult medical examination without abnormal findings (principal); F17.210 Nicotine dependence, cigarettes, uncomplicated; G89.29 Other chronic pain; F12.90 Cannabis use, unspecified, uncomplicated; F15.90 Other stimulant use, unspecified, uncomplicated; Z79.899 Other long term (current) drug therapy
CPT/HCPCS: 99281